=== PATIENT | male | born 1960 | race Hispanic/Latino ===

== ENCOUNTER 2017-01-25 15:38 | Inpatient (IN) | payer OTHER ==
[2017-01-25 17:10] LABS: Hematocrit 52.9 % (35.5-45.6); Hemoglobin 17.2 gm/dl (11.8-15.2); Mean Corpuscular HGB Conc 33 % (32-34); Mean Corpuscular Hemoglobin 30 pg (28-32); Mean Corpuscular Volume 93 fl (84-94); Platelet Count 234 K/mm3 (140-440); Red Blood Count 5.66 M/mm3 (3.65-5.03); Red Cell Distribution Width 14.9 % (13.2-15.2)
[2017-01-25 17:26] LABS: White Blood Count 23.6 K/mm3 (4.5-11.0)
[2017-01-25 17:29] LABS: Anion Gap 22 mmol/L; BUN/Creatinine Ratio 21; Blood Urea Nitrogen 15 mg/dL (9-20); Calcium 9.4 mg/dL (8.4-10.2); Carbon Dioxide 26 mmol/L (22-30); Chloride 93.5 mmol/L (98-107); Glucose 151 mg/dL (75-100); Potassium 4.6 mmol/L (3.6-5.0); Sodium 137 mmol/L (137-145)
--- NOTE | 2017-01-25 17:43 | Emergency Department Report ---
ED Seizure HPI - General Chief Complaint: Syncope Stated Complaint: SYNCOPE Time Seen by Provider: 01/25/17 17:20 Source: patient, family (daughter and boss), EMS Mode of arrival: Stretcher Limitations: No Limitations - History of Present Illness Initial Comments: 56 yo MALE WITH H/O ONE SEIZURE LAST MONTH ON WELLBUTRIN FOR SMOKING CESSATION HERE WITH C/O ANOTHER SEIZURE WHICH OCCURRED WHILE HE WAS AT WORK. PT HAD LUNCH AT 12:00 AND THEN AT 1500 HE HAD A GENERALIZED SIEZURE. PER EYE WITNESSES HIS EYES ROLLED BACK INTO HIS HEAD AND HE SHOOK ALL OVER. THERE WAS NO FECAL OR URINARY INCONTINENCE WITH THE SEIZURE BUT HE BIT THE LEFT SIDE OF HIS TONGUE. HE C/O OF MUSCLE PAIN ALLOVERPT HAS H/O 3 4 STENTS PALCED A MONTH AGO, HTN, TOBACCO ABUSE,SEIZURE AND ABOUT 7 SD STARTING WITH 2005.. Witnessed:: Yes Trauma: No (PAIN ALL OVER) Seizure History: other (ONE SEIZURE LAST MONTH) Place: work Possible Precipitating Event: medication (WELLBUTRIN) Associated Symptoms: other (PAIN ALL OVER) Treatments Prior to Arrival: none - Related Data Home Medications Medication Instructions Recorded Confirmed Last Taken Aspirin EC [Aspirin Enteric Coated 325 mg PO DAILY 06/10/16 06/10/16 06/10/16 TAB] AtorvaSTATin [Lipitor] 40 mg PO DAILY 06/10/16 06/10/16 06/10/16 Clopidogrel Bisulfate [Plavix] 75 mg PO DAILY 06/10/16 06/10/16 06/10/16 Lisinopril [Zestril TAB] 20 mg PO DAILY 06/10/16 06/10/16 06/09/16 Metoprolol [Lopressor TAB] 50 mg PO DAILY 06/10/16 06/10/16 06/09/16 Allergies Allergy/AdvReac Type Severity Reaction Status Date / Time Penicillins Allergy Hives Verified 06/10/16 07:22 ED Review of Systems ROS: Stated complaint: SYNCOPE Other details as noted in HPI Constitutional: denies: chills, fever Eyes: denies: eye pain, eye discharge, vision change ENT: denies: ear pain, throat pain Respiratory: denies: cough, shortness of breath, wheezing Cardiovascular: denies: chest pain, palpitations Endocrine: no symptoms reported Gastrointestinal: denies: abdominal pain, nausea, diarrhea Genitourinary: denies: urgency, dysuria Musculoskeletal: myalgia. denies: back pain, joint swelling, arthralgia Skin: denies: rash, lesions Neurological: denies: headache, weakness, paresthesias Psychiatric: denies: anxiety, depression Hematological/Lymphatic: denies: easy bleeding, easy bruising ED Past Medical Hx - Past Medical History Hx Hypertension: Yes Hx Heart Attack/AMI: Yes Hx Congestive Heart Failure: No Hx Diabetes: No Hx Arthritis: Yes Hx Seizures: Yes (x1 episode) Hx Asthma: No Hx COPD: No - Surgical History Hx Coronary Stent: Yes - Social History Smoking Status: Current Every Day Smoker Substance Use Type: Alcohol - Medications Home Medications: Home Medications Medication Instructions Recorded Confirmed Last Taken Type Aspirin EC [Aspirin Enteric Coated 325 mg PO DAILY 06/10/16 06/10/16 06/10/16 History TAB] AtorvaSTATin [Lipitor] 40 mg PO DAILY 06/10/16 06/10/16 06/10/16 History Clopidogrel Bisulfate [Plavix] 75 mg PO DAILY 06/10/16 06/10/16 06/10/16 History Lisinopril [Zestril TAB] 20 mg PO DAILY 06/10/16 06/10/16 06/09/16 History Metoprolol [Lopressor TAB] 50 mg PO DAILY 06/10/16 06/10/16 06/09/16 History ED Physical Exam - General Limitations: No Limitations General appearance: alert, in no apparent distress - Head Head exam: Present: atraumatic, normocephalic - Eye Eye exam: Present: normal appearance - ENT ENT exam: Present: mucous membranes moist, other (POOR DENTITION) - Neck Neck exam: Present: normal inspection, full ROM - Respiratory Respiratory exam: Present: normal lung sounds bilaterally. Absent: respiratory distress, wheezes, rales - Cardiovascular Cardiovascular Exam: Present: regular rate, normal rhythm, normal heart sounds. Absent: bradycardia, tachycardia, systolic murmur, diastolic murmur, rubs, gallop - GI/Abdominal GI/Abdominal exam: Present: soft, normal bowel sounds. Absent: distended, tenderness - Rectal Rectal exam: Present: deferred - Extremities Exam Extremities exam: Present: normal inspection, full ROM - Back Exam Back exam: Present: normal inspection, full ROM - Neurological Exam Neurological exam: Present: alert, oriented X3, CN II-XII intact. Absent: motor sensory deficit, reflexes normal - Psychiatric Psychiatric exam: Present: normal affect, normal mood - Skin Skin exam: Present: warm, dry, intact, normal color. Absent: rash ED Course Vital Signs 01/25/17 01/25/17 01/25/17 16:43 17:14 17:16 Temperature 98.1 F Pulse Rate 86 89 87 Respiratory 18 21 24 Rate Blood Pressure 142/89 142/88 140/89 Blood Pressure [Right] O2 Sat by Pulse 96 96 97 Oximetry 01/25/17 01/25/17 01/25/17 17:18 17:20 17:22 Temperature Pulse Rate 91 H 89 88 Respiratory 14 14 12 Rate Blood Pressure 140/89 140/89 140/89 Blood Pressure [Right] O2 Sat by Pulse 96 97 97 Oximetry 01/25/17 01/25/17 01/25/17 17:24 17:26 17:28 Temperature Pulse Rate 89 90 91 H Respiratory 19 15 15 Rate Blood Pressure 140/89 140/89 140/89 Blood Pressure [Right] O2 Sat by Pulse 97 97 98 Oximetry 01/25/17 01/25/17 01/25/17 17:30 17:32 17:34 Temperature Pulse Rate 94 H 91 H 94 H Respiratory 13 17 20 Rate Blood Pressure 140/89 150/92 150/92 Blood Pressure [Right] O2 Sat by Pulse 97 97 99 Oximetry 01/25/17 01/25/17 01/25/17 17:36 17:38 17:40 Temperature Pulse Rate 97 H 95 H 95 H Respiratory 10 L 14 12 Rate Blood Pressure 150/92 150/92 150/92 Blood Pressure [Right] O2 Sat by Pulse 99 98 98 Oximetry 01/25/17 01/25/17 01/25/17 17:42 17:44 17:46 Temperature Pulse Rate 96 H 92 H 93 H Respiratory 10 L 15 13 Rate Blood Pressure 150/92 150/92 130/75 Blood Pressure [Right] O2 Sat by Pulse 98 98 97 Oximetry 01/25/17 01/25/17 01/25/17 17:48 17:50 17:52 Temperature Pulse Rate 85 95 H 89 Respiratory 10 L 27 H 12 Rate Blood Pressure 130/75 130/75 130/75 Blood Pressure [Right] O2 Sat by Pulse 98 97 97 Oximetry 01/25/17 01/25/17 01/25/17 17:54 17:56 17:58 Temperature Pulse Rate 91 H 89 92 H Respiratory 19 19 13 Rate Blood Pressure 130/75 130/75 130/75 Blood Pressure [Right] O2 Sat by Pulse 96 97 97 Oximetry 01/25/17 01/25/17 01/25/17 18:00 18:02 18:04 Temperature Pulse Rate 89 90 88 Respiratory 21 21 21 Rate Blood Pressure 130/75 130/72 130/72 Blood Pressure [Right] O2 Sat by Pulse 97 94 95 Oximetry 01/25/17 01/25/17 01/25/17 18:06 18:08 18:10 Temperature Pulse Rate 87 87 86 Respiratory 21 18 19 Rate Blood Pressure 130/72 130/72 130/72 Blood Pressure [Right] O2 Sat by Pulse Oximetry 01/25/17 01/25/17 01/25/17 18:12 18:14 18:16 Temperature Pulse Rate 85 86 86 Respiratory 15 19 18 Rate Blood Pressure 130/72 130/72 135/78 Blood Pressure [Right] O2 Sat by Pulse Oximetry 01/25/17 01/25/17 01/25/17 18:20 19:18 19:20 Temperature Pulse Rate 86 93 H 88 Respiratory 11 L 18 16 Rate Blood Pressure 135/78 135/78 147/87 Blood Pressure [Right] O2 Sat by Pulse 93 Oximetry 01/25/17 01/25/17 01/25/17 19:22 19:24 19:26 Temperature Pulse Rate 88 88 85 Respiratory 17 14 14 Rate Blood Pressure 147/87 147/87 147/87 Blood Pressure [Right] O2 Sat by Pulse 95 95 96 Oximetry 01/25/17 01/25/17 01/25/17 19:28 19:30 19:32 Temperature Pulse Rate 85 88 88 Respiratory 15 14 22 Rate Blood Pressure 147/87 133/72 133/72 Blood Pressure [Right] O2 Sat by Pulse 95 93 94 Oximetry 01/25/17 01/25/17 01/25/17 19:34 19:36 19:38 Temperature Pulse Rate 85 90 89 Respiratory 18 13 24 Rate Blood Pressure 133/72 133/72 133/72 Blood Pressure [Right] O2 Sat by Pulse 95 96 95 Oximetry 01/25/17 01/25/17 01/25/17 19:40 19:42 19:44 Temperature Pulse Rate 89 96 H 99 H Respiratory 22 20 13 Rate Blood Pressure 133/72 133/72 133/72 Blood Pressure [Right] O2 Sat by Pulse 95 95 93 Oximetry 01/25/17 01/25/17 01/25/17 19:46 19:48 19:50 Temperature Pulse Rate 91 H 90 89 Respiratory 16 22 25 H Rate Blood Pressure 157/88 157/88 157/88 Blood Pressure [Right] O2 Sat by Pulse 95 95 94 Oximetry 01/25/17 19:53 Temperature 98.4 F Pulse Rate 88 Respiratory 11 L Rate Blood Pressure Blood Pressure 147/87 [Right] O2 Sat by Pulse 94 Oximetry ED Medical Decision Making - Lab Data Result diagrams: 01/25/17 20:49 01/25/17 16:55 - EKG Data -: EKG Interpreted by Me EKG shows normal: axis, intervals Rate: tachycardia - EKG Data When compared to previous EKG there are: changes noted (INFERIOR ST -CHANGES, LEFT ATRIAL ENLAREMENT) Critical care time in (mins) excluding proc time.: 60 Critical care attestation.: If time is entered above; I have spent that time in minutes in the direct care of this critically ill patient, excluding procedure time. MARIA DOLORES Critical Care Time: 60MIN ED Disposition Clinical Impression: NSTEMI (non-ST elevated myocardial infarction), Seizure CAD (coronary artery disease) Qualifiers: Coronary Disease-Associated Artery/Lesion type: unspecified vessel or lesion type [place] vs. transplanted heart: [place] heart Associated angina: without angina Qualified Code(s): I25.10 - Atherosclerotic heart disease of [place] coronary artery without angina pectoris Disposition: OP ADMIT IP TO THIS HOSP Is pt being admited?: Yes Condition: Serious Referrals: PRIMARY CARE, [Primary Care Provider] - 3-5 Days Time of Disposition: 21:54 (MARTHA REVIEWED WITH [facility] AND SHE WILL ADMIT THIS PT TO THE HOSPITAL)
[2017-01-25] MEDS ORDERED: NACL 0.9% 1000 ML 1,000 ML IV ONE ×2 (17:44→21:12)
[2017-01-25 17:58] LABS: Basophils % (Manual) 0 % (0.0-1.8); Blastocytes % (Manual) 0 %; Diff Status Complete; RBC Morphology Normal
[2017-01-25 19:12] LABS: Urine Drugs of Abuse Note Disclamer
[2017-01-25 19:22] LABS: Bilirubin,Urine NEG (Negative); Blood,Urine NEG (Negative); Ketones,Urine NEG (Negative); Leukocyte Esterase,Urine NEG (Negative); Mucus,Urine FEW /HPF; Nitrite,Urine NEG (Negative); Protein,Urine <15 mg/dL mg/dL (Negative); Urobilinogen,Urine < 2.0 mg/dL (<2.0); WBC,Urine < 1.0 /HPF (0.0-6.0)
[2017-01-25] MEDS ORDERED: ASPIRIN PO ONE (21:11)
[2017-01-25 21:35] LABS: Hematocrit 49.4 % (35.5-45.6); Hemoglobin 16.4 gm/dl (11.8-15.2); Mean Corpuscular HGB Conc 33 % (32-34); Mean Corpuscular Hemoglobin 31 pg (28-32); Mean Corpuscular Volume 92 fl (84-94); Platelet Count 214 K/mm3 (140-440); Red Blood Count 5.37 M/mm3 (3.65-5.03)
--- NOTE | 2017-01-25 21:43 | XRay Report ---
FINAL REPORT PROCEDURE: XR CHEST ROUTINE 2V TECHNIQUE: Two views of the chest are obtained HISTORY: Fever COMPARISON: No prior studies are available for comparison. FINDINGS: Lungs are hyperinflated possibly due to COPD. Large anterior osteophytes are seen in the mid thoracic spine. Heart is normal size. No pneumothorax, focal infiltrate, or pleural effusion is seen IMPRESSION: There may be changes of COPD but no evidence pneumonia is seen.
[2017-01-25 21:52] LABS: White Blood Count 21.5 K/mm3 (4.5-11.0)
[2017-01-25] MEDS ORDERED: KEPPRA 1,000 MG in NACL 0.9% 100 ML IV SCH (22:00)
[2017-01-25] MEDS ORDERED: KEPPRA 1,000 MG/NS 0.75% 100ML 1,000 MG/100 ML BAG IV SCH (22:00)
[2017-01-25 22:08] LABS: Creatine Kinase MB 11.3 ng/mL (0.0-4.0)
[2017-01-25 22:32] LABS: Blastocytes % (Manual) 0 %; Eosinophils % (Manual) 0 % (0.0-4.3)
[2017-01-25 22:34] LABS: Diff Status Complete; Giant Platelets Few
[2017-01-25] MEDS ORDERED: KEPPRA 1,000 MG/NS 0.75% 100ML 1,000 MG/100 ML BAG IV ONE (23:15)
[2017-01-25] MEDS ORDERED: ASPIRIN ONE (23:15)
[2017-01-25] MEDS ORDERED: NACL 0.9% 1000 ML 1,000 ML ONE (23:15)
[2017-01-25] MEDS ORDERED: NITRO-BID 2% TP ONE ×2 (23:41→23:47)
[2017-01-25] MEDS ORDERED: LOVENOX SUB-Q ONE (23:47)
[2017-01-25] MEDS: LOVENOX SUB-Q SCH (23:51)
[2017-01-26] MEDS ORDERED: ZOFRAN IV PRN (03:40)
[2017-01-26] MEDS ORDERED: TYLENOL PO PRN (03:40)
[2017-01-26] MEDS ORDERED: MORPHINE IV PRN (03:40)
[2017-01-26] MEDS ORDERED: PERCOCET 5/325 PO PRN (03:40)
[2017-01-26] MEDS ORDERED: MILK OF MAGNESIA PO PRN (03:40)
[2017-01-26] MEDS ORDERED: DULCOLAX PR PRN (03:40)
--- NOTE | 2017-01-26 03:49 | History and Physical Report ---
History of Present Illness Date of admission: 01/25/17 21:55 Chief complaint: seizure History of present illness: A 56-year-old male presents medical history of hypertension, hyperlipidemia, CAD status post multiple stents recently. History of recent [place]. Patient has a history of tobacco abuse. Was recently started on Wellbutrin to help him to cut back on cigarettes. He was at work when he was noticed to fall down and have a generalized tonic-clonic seizure. Patient is now postictal and confused. Denies chest pain. Denies any recollection of what happened. He has a known history of seizure disorder states her last seizure was about a month ago. However he presented in June 2016 to this hospital. That time he was brought in by his daughter for seizure, workup was consistent with non- STEMI, and he went on to have angiogram and angioplasty of his LAD. Past History Past Medical History: CAD, hypertension, hyperlipidemia, seizures Past Surgical History: Other (PCI) Social history: smoking Family history: hypertension Medications and Allergies Allergies Allergy/AdvReac Type Severity Reaction Status Date / Time Penicillins Allergy Hives Verified 06/10/16 07:22 Home Medications Medication Instructions Recorded Confirmed Last Taken Type Aspirin EC [Aspirin Enteric Coated 325 mg PO DAILY 06/10/16 01/26/17 06/10/16 History TAB] AtorvaSTATin [Lipitor] 40 mg PO DAILY 06/10/16 01/26/17 06/10/16 History Clopidogrel Bisulfate [Plavix] 75 mg PO DAILY 06/10/16 01/26/17 06/10/16 History Lisinopril [Zestril TAB] 20 mg PO DAILY 06/10/16 01/26/17 06/09/16 History Metoprolol [Lopressor TAB] 50 mg PO DAILY 06/10/16 01/26/17 06/09/16 History Active Meds: Active Medications Aspirin (Ecotrin) 325 mg PO DAILY [facility] Atorvastatin Calcium (Lipitor) 40 mg PO DAILY [facility] Clopidogrel Bisulfate (Plavix) 75 mg PO DAILY [facility] Enoxaparin Sodium (Lovenox) 80 mg 1 mg/kg (80 mg) SUB-Q Q12HR [facility] Last Admin: 01/25/17 23:51 Dose: 80 mg Levetiracetam (Keppra 1,000 Mg/Ns 0.75% 100ml) 1,000 mg in 100 mls @ 400 mls/ hr IV Q12H [facility] Last Admin: 01/25/17 23:25 Dose: 400 mls/hr Lisinopril (Zestril) 20 mg PO DAILY [facility] Metoprolol Tartrate (Lopressor) 50 mg PO DAILY [facility] Review of Systems ROS unobtainable: due to mental status Exam - Constitutional Vitals: Temp Pulse Resp BP Pulse Ox 98.6 F 81 18 141/86 95 01/26/17 01:39 01/26/17 01:39 01/26/17 01:39 01/26/17 01:39 01/26/17 01:39 General appearance: Present: no acute distress, well-nourished - EENT Eyes: Present: PERRL ENT: hearing intact, clear oral mucosa - Neck Neck: Present: supple, normal ROM - Respiratory Respiratory effort: normal Respiratory: bilateral: CTA - Cardiovascular Heart Sounds: Present: S1 & S2. Absent: rub, click - Extremities Extremities: pulses symmetrical, No edema Peripheral Pulses: within normal limits - Abdominal General gastrointestinal: Present: soft, non-tender, non-distended, normal bowel sounds Male genitourinary: Present: normal - Integumentary Integumentary: Present: clear, warm, dry - Musculoskeletal Musculoskeletal: gait normal, strength equal bilaterally - Psychiatric Psychiatric: cooperative - Neurologic Neurologic: moves all extremities, other (confused, somnolent) Results - Labs CBC & Chem 7: 01/25/17 20:49 01/25/17 16:55 Labs: Laboratory Last Values WBC 21.5 K/mm3 (4.5-11.0) H 01/25/17 20:49 RBC 5.37 M/mm3 (3.65-5.03) H 01/25/17 20:49 Hgb 16.4 gm/dl (11.8-15.2) H 01/25/17 20:49 Hct 49.4 % (35.5-45.6) H 01/25/17 20:49 MCV 92 fl (84-94) 01/25/17 20:49 MCH 31 pg (28-32) 01/25/17 20:49 MCHC 33 % (32-34) 01/25/17 20:49 RDW 15.0 % (13.2-15.2) 01/25/17 20:49 Plt Count 214 K/mm3 (140-440) 01/25/17 20:49 Add Manual Diff Complete 01/25/17 20:49 Total Counted 100 01/25/17 20:49 Seg Neuts % (Manual) 83.0 % (40.0-70.0) H 01/25/17 20:49 Band Neutrophils % 1.0 % 01/25/17 20:49 Lymphocytes % (Manual) 12.0 % (13.4-35.0) L 01/25/17 20:49 Reactive Lymphs % (Man) 0 % 01/25/17 20:49 Monocytes % (Manual) 3.0 % (0.0-7.3) 01/25/17 20:49 Eosinophils % (Manual) 0 % (0.0-4.3) 01/25/17 20:49 Basophils % (Manual) 1.0 % (0.0-1.8) 01/25/17 20:49 Metamyelocytes % 0 % 01/25/17 20:49 Myelocytes % 0 % 01/25/17 20:49 Promyelocytes % 0 % 01/25/17 20:49 Blast Cells % 0 % 01/25/17 20:49 Nucleated RBC % Not Reportable 01/25/17 20:49 Seg Neutrophils # Man 17.8 K/mm3 (1.8-7.7) H 01/25/17 20:49 Band Neutrophils # 0.2 K/mm3 01/25/17 20:49 Lymphocytes # (Manual) 2.6 K/mm3 (1.2-5.4) 01/25/17 20:49 Abs React Lymphs (Man) 0.0 K/mm3 01/25/17 20:49 Monocytes # (Manual) 0.6 K/mm3 (0.0-0.8) 01/25/17 20:49 Eosinophils # (Manual) 0.0 K/mm3 (0.0-0.4) 01/25/17 20:49 Basophils # (Manual) 0.2 K/mm3 (0.0-0.1) H 01/25/17 20:49 Metamyelocytes # 0.0 K/mm3 01/25/17 20:49 Myelocytes # 0.0 K/mm3 01/25/17 20:49 Promyelocytes # 0.0 K/mm3 01/25/17 20:49 Blast Cells # 0.0 K/mm3 01/25/17 20:49 WBC Morphology Not Reportable 01/25/17 20:49 Hypersegmented Neuts Not Reportable 01/25/17 20:49 Hyposegmented Neuts Not Reportable 01/25/17 20:49 Hypogranular Neuts Not Reportable 01/25/17 20:49 Smudge Cells Not Reportable 01/25/17 20:49 Toxic Granulation Not Reportable 01/25/17 20:49 Toxic Vacuolation Not Reportable 01/25/17 20:49 Dohle Bodies Not Reportable 01/25/17 20:49 Pelger-Huet Anomaly Not Reportable 01/25/17 20:49 Dante Rods Not Reportable 01/25/17 20:49 Platelet Estimate Appears normal 01/25/17 20:49 Clumped Platelets Not Reportable 01/25/17 20:49 Plt Clumps, EDTA Not Reportable 01/25/17 20:49 Large Platelets Not Reportable 01/25/17 20:49 Giant Platelets Few 01/25/17 20:49 Platelet Satelliting Not Reportable 01/25/17 20:49 Plt Morphology Comment Not Reportable 01/25/17 20:49 RBC Morphology Not Reportable 01/25/17 20:49 Dimorphic RBCs Not Reportable 01/25/17 20:49 Polychromasia Not Reportable 01/25/17 20:49 Hypochromasia Not Reportable 01/25/17 20:49 Poikilocytosis Not Reportable 01/25/17 20:49 Anisocytosis Not Reportable 01/25/17 20:49 Microcytosis Not Reportable 01/25/17 20:49 Macrocytosis Not Reportable 01/25/17 20:49 Spherocytes Not Reportable 01/25/17 20:49 Pappenheimer Bodies Not Reportable 01/25/17 20:49 Sickle Cells Not Reportable 01/25/17 20:49 Target Cells Not Reportable 01/25/17 20:49 Tear Drop Cells Not Reportable 01/25/17 20:49 Ovalocytes Not Reportable 01/25/17 20:49 Helmet Cells Not Reportable 01/25/17 20:49 [place] Bodies Not Reportable 01/25/17 20:49 [place] Rings Not Reportable 01/25/17 20:49 [place] Cells Not Reportable 01/25/17 20:49 Bite Cells Not Reportable 01/25/17 20:49 Crenated Cell Not Reportable 01/25/17 20:49 Elliptocytes Not Reportable 01/25/17 20:49 Acanthocytes (Spur) Not Reportable 01/25/17 20:49 Rouleaux Not Reportable 01/25/17 20:49 Hemoglobin C Crystals Not Reportable 01/25/17 20:49 Schistocytes Not Reportable 01/25/17 20:49 Malaria parasites Not Reportable 01/25/17 20:49 Arron Bodies Not Reportable 01/25/17 20:49 Hem Pathologist Commnt No 01/25/17 20:49 Sodium 137 mmol/L (137-145) 01/25/17 16:55 Potassium 4.6 mmol/L (3.6-5.0) 01/25/17 16:55 Chloride 93.5 mmol/L (98-107) L 01/25/17 16:55 Carbon Dioxide 26 mmol/L (22-30) 01/25/17 16:55 Anion Gap 22 mmol/L 01/25/17 16:55 BUN 15 mg/dL (9-20) 01/25/17 16:55 Creatinine 0.7 mg/dL (0.8-1.5) L 01/25/17 16:55 Estimated GFR > 60 ml/min 01/25/17 16:55 BUN/Creatinine Ratio 21 % 01/25/17 16:55 Glucose 151 mg/dL (75-100) H 01/25/17 16:55 Calcium 9.4 mg/dL (8.4-10.2) 01/25/17 16:55 Total Creatine Kinase 770 units/L (55-170) H 01/25/17 20:00 CK-MB (CK-2) 11.3 ng/mL (0.0-4.0) H 01/25/17 20:00 CK-MB (CK-2) Rel Index 1.4 (0-4) 01/25/17 20:00 Troponin T 0.106 ng/mL (0.00-0.029) H* D 01/25/17 22:52 Triglycerides 89 mg/dL (2-149) 01/25/17 20:00 Cholesterol 226 mg/dL (50-199) H 01/25/17 20:00 LDL Cholesterol Direct 156 mg/dL (50-130) H 01/25/17 20:00 HDL Cholesterol 53 mg/dL (40-59) 01/25/17 20:00 Cholesterol/HDL Ratio 4.26 % 01/25/17 20:00 Urine Color Yellow (Yellow) 01/25/17 18:57 Urine Turbidity Clear (Clear) 01/25/17 18:57 Urine pH 5.0 (5.0-7.0) 01/25/17 18:57 Ur Specific [place] 1.020 (1.003-1.030) 01/25/17 18:57 Urine Protein <15 mg/dl mg/dL (Negative) 01/25/17 18:57 Urine Glucose (UA) Neg mg/dL (Negative) 01/25/17 18:57 Urine Ketones Neg mg/dL (Negative) 01/25/17 18:57 Urine Blood Neg (Negative) 01/25/17 18:57 Urine Nitrite Neg (Negative) 01/25/17 18:57 Urine Bilirubin Neg (Negative) 01/25/17 18:57 Urine Urobilinogen < 2.0 mg/dL (<2.0) 01/25/17 18:57 Ur Leukocyte Esterase Neg (Negative) 01/25/17 18:57 Urine WBC (Auto) < 1.0 /HPF (0.0-6.0) 01/25/17 18:57 Urine RBC (Auto) 1.0 /HPF (0.0-6.0) 01/25/17 18:57 Urine Mucus Few /HPF 01/25/17 18:57 Urine Opiates Screen Presumptive negative 01/25/17 18:57 Urine Methadone Screen Presumptive negative 01/25/17 18:57 Ur Barbiturates Screen Presumptive negative 01/25/17 18:57 Ur Phencyclidine Scrn Presumptive negative 01/25/17 18:57 Ur Amphetamines Screen Presumptive negative 01/25/17 18:57 U Benzodiazepines Scrn Presumptive negative 01/25/17 18:57 Urine Cocaine Screen Presumptive negative 01/25/17 18:57 U Marijuana (THC) Screen Presumptive negative 01/25/17 18:57 Drugs of Abuse Note Disclamer 01/25/17 18:57 - Imaging and Cardiology Chest x-ray: image reviewed (no acute findings) Assessment and Plan Assessment and plan: 56-year-old male with past medical history of seizure disorder, CAD hypertension and hyperlipidemia. Patient was brought to the hospital after a witnessed seizure. Status epilepticus Continue keppra, EEG, CT head and MRI brain. Obtain neurology consult UDs negative Non-STEMI Acute rise in troponin noted, given history of recent [place] and recent stenting. We'll put him on Lovenox full dose if CT head is negative for bleeding -Cardiology consult with Dr. Granados who saw him during his last admission -continue Asa, plavix, metoprolol and statin -keep NPO until seen by cardiology Tobacco abuse -smoking cessation ordered -hold wellbutrin as it may lower seizure threshold HTN resume home meds HLD continue statin DVT ppx fully anticoagulated VTE prophylaxis?: Chemical
--- NOTE | 2017-01-26 08:35 | Cat Scan Report ---
FINAL REPORT EXAM: CT HEAD/BRAIN WO CON HISTORY: seizure TECHNIQUE: CT imaging acquired through the head without intravenous contrast. Transaxial reformations are provided. PRIORS: 06/10/2016 FINDINGS: The ventricles, cisterns and sulci are mildly proportionately enlarged, consistent with parenchymal volume loss. No intraparenchymal or extra-axial mass, hemorrhage, or mass effect. Lester and white-matter differentiation is reflective of mild sequela of microvascular angiopathy. Normal spherical shape of the globes. No significant abnormality involving the imaged portions of the paranasal sinuses and mastoid air cells. No skull or facial fracture visualized. IMPRESSION: No acute intracranial abnormality. Consider follow-up MRI. There are mild sequela of parenchymal atrophy and microvascular angiopathy.
--- NOTE | 2017-01-26 09:17 | Magnetic Resonance Report ---
MRI OF THE BRAIN WITHOUT CONTRAST: HISTORY: Seizure PROCEDURE: Multiplanar, multisequence MR imaging of the brain without IV contrast was performed. FINDINGS: Compared to the CT head dated 01/26/17. There is mild diffuse cortical volume loss and mild nonspecific chronic white matter changes. Chronic lacunar infarct in the left elias measures 5 mm. No large chronic infarct. No evidence for acute ischemia, hemorrhage, mass or extra-axial fluid collection. The midline structures are central. The basal cisterns are patent. Normal ventricular size. The orbital cavities and sella turcica demonstrate no abnormality. Moderate mucosal thickening is noted throughout all paranasal sinuses. The mastoid air cells are clear. IMPRESSION: Mild cortical volume loss and nonspecific chronic white matter changes. Chronic lacunar infarct in the left elias. No acute intracranial process.
[2017-01-26] MEDS ORDERED: LOVENOX SUB-Q SCH (10:00)
[2017-01-26] MEDS ORDERED: LOPRESSOR PO SCH (10:00)
[2017-01-26] MEDS ORDERED: ECOTRIN PO SCH (10:00)
[2017-01-26] MEDS ORDERED: KEPPRA PO SCH (10:00)
[2017-01-26] MEDS ORDERED: PLAVIX PO SCH (10:00)
[2017-01-26] MEDS ORDERED: ZESTRIL PO SCH (10:00)
[2017-01-26] MEDS ORDERED: KEPPRA 500 MG in NACL 0.9% 100 ML IV SCH (10:00)
--- NOTE | 2017-01-26 10:09 | Consultation ---
History of Present Illness Consult date: 01/26/17 Requesting physician: DANTE MCCARTHY Consult reason: elevated troponin History of present illness: The patient is a 56 YO male with a past medical history significant for HTN, HLP, and CAD s/p PCI (stents placed in 2005 and 2009 and STEMI with PCI of proximal LAD 06/2016), tobacco use. He is a [place] pt and has been seen by our practice on a prior admission. He presented with c/o seizure yesterday while at work. He was at work yesterday when he was noticed to fall down and have a generalized tonic-clonic seizure. Denies any recollection of what happened. Pt was recently started on Wellbutrin to help him to cut back on cigarettes and believes that the seizure could have been induced by Wellbutrin. Following arrival, first troponin was negative and second was found to be minimally elevated and thus cardiology has been consulted. On evaluation, pt denies any current complaints. He states that he has been feeling well up until the seizure yesterday. He denies any chest pain, SOB, palpitations, n/v, diaphoresis or dizziness. He reports compliance with his medications, including ASA, plavix, lopressor, lisinopril and lipitor. Past History Past Medical History: CAD, hypertension, hyperlipidemia, seizures Past Surgical History: Other (PCI) Social history: smoking Family history: hypertension Medications and Allergies Allergies Allergy/AdvReac Type Severity Reaction Status Date / Time Penicillins Allergy Hives Verified 06/10/16 07:22 Home Medications Medication Instructions Recorded Confirmed Last Taken Type Aspirin EC [Aspirin Enteric Coated 325 mg PO DAILY 06/10/16 01/26/17 06/10/16 History TAB] AtorvaSTATin [Lipitor] 40 mg PO DAILY 06/10/16 01/26/17 06/10/16 History Clopidogrel Bisulfate [Plavix] 75 mg PO DAILY 06/10/16 01/26/17 06/10/16 History Lisinopril [Zestril TAB] 20 mg PO DAILY 06/10/16 01/26/17 06/09/16 History Metoprolol [Lopressor TAB] 50 mg PO DAILY 06/10/16 01/26/17 06/09/16 History Active Meds: Active Medications Acetaminophen (Tylenol) 650 mg PO Q4H PRN PRN Reason: Pain MILD(1-3)/Fever >100.5/SAAB Aspirin (Ecotrin) 325 mg PO DAILY [facility] Atorvastatin Calcium (Lipitor) 40 mg PO DAILY [facility] Bisacodyl (Dulcolax) 10 mg [place] QDAY PRN PRN Reason: Constipation unrelieved by [facility] Clopidogrel Bisulfate (Plavix) 75 mg PO DAILY [facility] Enoxaparin Sodium (Lovenox) 80 mg 1 mg/kg (80 mg) SUB-Q Q12HR [facility] Last Admin: 01/25/17 23:51 Dose: 80 mg Levetiracetam (Keppra) 500 mg PO BID [facility] Lisinopril (Zestril) 20 mg PO DAILY [facility] Magnesium Hydroxide (Milk Of Magnesia) 30 ml PO Q4H PRN PRN Reason: Constipation Metoprolol Tartrate (Lopressor) 50 mg PO DAILY [facility] Morphine Sulfate (Morphine) 2 mg IV Q4H PRN PRN Reason: Pain, Moderate (4-6) Ondansetron HCl (Zofran) 4 mg IV Q8H PRN PRN Reason: N/V unrelieved by Reglan Oxycodone/Acetaminophen (Percocet 5/325) 1 tab PO Q6H PRN PRN Reason: Pain, Moderate (4-6) Review of Systems Constitutional: no weight loss, no weight gain, no fever, no chills, no sweats Ears, nose, mouth and throat: no ear pain, no nose pain, no sinus pressure, no sinus pain Cardiovascular: no chest pain, no orthopnea, no palpitations, no rapid/ irregular heart beat, no edema, no lightheadedness, no shortness of breath, no dyspnea on exertion, no leg edema, no decreased exercise tolerance Respiratory: no cough, no congestion, no wheezing, no pain on inspiration Gastrointestinal: no abdominal pain, no nausea, no vomiting, no diarrhea, no constipation, no change in bowel habits Genitourinary Male: no dysuria, no hematuria, no flank pain, no discharge, no urinary frequency, no urinary hesitancy Musculoskeletal: no neck stiffness, no neck pain, no shooting arm pain, no arm numbness/tingling, no low back pain, no shooting leg pain, no leg numbness/ tingling, no redness of joints Integumentary: no rash, no pruritis, no redness, no sores, no wounds Neurological: seizures, no head injury, no paralysis, no weakness, no parathesias, no numbness, no tingling Psychiatric: no anxiety Endocrine: no cold intolerance, no heat intolerance Hematologic/Lymphatic: no easy bruising, no easy bleeding, no lymphadenopathy Allergic/Immunologic: no urticaria, no wheezing, no persistent infections Physical Examination Vital Signs Temp Pulse Resp BP Pulse Ox 98.1 F 86 18 142/89 96 01/25/17 16:43 01/25/17 16:43 01/25/17 16:43 01/25/17 16:43 01/25/17 16:43 General appearance: no acute distress HEENT: Positive: PERRL, Normocephaly, Mucus Membranes Moist Neck: Positive: neck supple, trachea midline Cardiac: Positive: Reg Rate and Rhythm, S1/S2 Lungs: Positive: Normal Exam, clear to auscultation, Normal Breath Sounds Neuro: Positive: Grossly Intact, Cranial Nerve 2-12 Intact Abdomen: Positive: Unremarkable, Soft, Active Bowel Sounds. Negative: Tender Skin: Positive: Clear. Negative: Rash, Wound Musculoskeletal: No Fluid Collection, No Pain, Normal Range of Motion Extremities: Absent: edema Results 01/25/17 20:49 01/25/17 16:55 Cardiac Enzymes 01/25/17 01/25/17 Range/Units 16:55 20:00 CK-MB (CK-2) 5.0 H 11.3 H (0.0-4.0) ng/mL Lipids 01/25/17 Range/Units 20:00 Triglycerides 89 (2-149) mg/dL Cholesterol 226 H (50-199) mg/dL HDL Cholesterol 53 (40-59) mg/dL Cholesterol/HDL Ratio 4.26 % CBC 01/25/17 01/25/17 Range/Units 16:55 20:49 WBC 23.6 H 21.5 H (4.5-11.0) K/mm3 RBC 5.66 H 5.37 H (3.65-5.03) M/mm3 Hgb 17.2 H 16.4 H (11.8-15.2) gm/dl Hct 52.9 H 49.4 H (35.5-45.6) % Plt Count 234 214 (140-440) K/mm3 Comprehensive Metabolic Panel 01/25/17 Range/Units 16:55 Sodium 137 (137-145) mmol/L Potassium 4.6 (3.6-5.0) mmol/L Chloride 93.5 L (98-107) mmol/L Carbon Dioxide 26 (22-30) mmol/L BUN 15 (9-20) mg/dL Creatinine 0.7 L (0.8-1.5) mg/dL Glucose 151 H (75-100) mg/dL Calcium 9.4 (8.4-10.2) mg/dL - Imaging and Cardiology Echo: report reviewed (06/2016: EF 55-60%, trace MR) Cardiac cath: report reviewed (STEMI with PCI of proximal LAD 06/2016) EKG: report reviewed, image reviewed EKG interpretations - Telemetry EKG Rhythm: Sinus Rhythm - EKG Sinus rhythms and dysrhythmias: sinus rhythm Myocardial infarction: septal MA (old age or ind, anterior MA (old age or i Assessment and Plan Assessment: Seizure - head CT and brain MRI with NAF; neurology consultation pending. Minimally elevated troponin x 1 set - pt denies chest pain; ECG with NAF CAD, s/p PCI of proximal LAD 06/10/2016 HTN HLP Tobacco use - cessation encouraged Plan: Minimally elevated troponin could be secondary to seizure. Currently stable cardiac status. No indication for repeat echo or ischemic evaluation at this time. Cont Plavix, ASA 81, lipitor, lopressor, and lisinopril. Assessment and plan reviewed with pt at bedside. The patient has been seen in conjunction with Dr. Mclaughlin who agrees with the assessment and plan of care.
[2017-01-26] MEDS: LOVENOX SUB-Q SCH (10:56)
[2017-01-26] MEDS ORDERED: BABY ASPIRIN PO SCH (11:30)
--- NOTE | 2017-01-26 12:28 | Progress Note ---
Assessment and Plan Assessment and plan: Patient is a 56-year-old man with a history of hypertension, dyslipidemia and tobacco dependency who was started on Wellbutrin about a month ago from [place]. He was titrating the dose as well as a seizure work. Initial troponin was negative and the second set positive for cardiology was consulted and he was admitted to the hospital. CT of the head read as nothing acute. -Status epilepticus control with IV Keppra: Await neurology's assessment, I believe the seizure was induced by Wellbutrin, I believe stopping the Wellbutrin and he will not probably need antiepileptic neurology but we'll defer to neurologist -Elevated troponin, per Cardiology: "Seizure - head CT and brain MRI with NAF; neurology consultation pending. Minimally elevated troponin x 1 set - pt denies chest pain; ECG with NAF CAD, s/p PCI of proximal LAD 06/10/2016 HTN HLP Tobacco use - cessation encouraged Plan: Minimally elevated troponin could be secondary to seizure. Currently stable cardiac status. No indication for repeat echo or ischemic evaluation at this time. Cont Plavix, ASA 81, lipitor, lopressor, and lisinopril. Assessment and plan reviewed with pt at bedside. The patient has been seen in conjunction with Dr. Mclaughlin who agrees with the assessment and plan of care. " -Leukocytosis with Sirs due to seizures -Hypertension -Dyslipidemia continue present medicines History Interval history: Patient was seen and examined. Follow-up on current diagnosis/seizures which resolved. Overnight uneventful. Patient denies any chest pain, shortness breath, nausea/vomiting or severe headaches. Imaging, nursing note, chart, labs and old chart reviewed. Discussed with patient. Patient started on Wellbutrin less than a month ago. He was titrating the dose up. Wellbutrin is known to lower seizure threshold. Patient denies ever having seizures. Hospitalist Physical - Physical exam Narrative exam: GEN: WDWN, NAD, AWAKE, ALERT, ORIENTATED 3 HEENT: NCAT, EOMI, PERRL, OP Clear, really poor dental hygiene with gingivitis and decayed teeth NECK: supple, no adenopathy, no thyromegaly, no JVD CVS/HEART: RRR, NORMAL S1S2, NO JVD, pulses present bilaterally CHEST/LUNGS: CTA B, Symmetrical chest expansion, good air entry bilaterally GI/Abdomen: soft, NTND, good bowel sounds, no guarding or rebound /Bladder: no suprapubic tenderness, no CVA or paraspinal tenderness EXT/Skin: no c/c/e, no obvious rash MSK: FROM x 4 Neuro: CN 2-12 grossly intact, no new focal deficits Psych: calm - Constitutional Vitals: Temp Pulse Resp BP Pulse Ox 98.4 F 83 18 144/84 96 01/26/17 04:57 01/26/17 10:57 01/26/17 04:57 01/26/17 10:57 01/26/17 04:57 General appearance: Present: no acute distress Results - Labs CBC & Chem 7: 01/25/17 20:49 01/25/17 16:55 Labs: Laboratory Last Values WBC 21.5 K/mm3 (4.5-11.0) H 01/25/17 20:49 RBC 5.37 M/mm3 (3.65-5.03) H 01/25/17 20:49 Hgb 16.4 gm/dl (11.8-15.2) H 01/25/17 20:49 Hct 49.4 % (35.5-45.6) H 01/25/17 20:49 MCV 92 fl (84-94) 01/25/17 20:49 MCH 31 pg (28-32) 01/25/17 20:49 MCHC 33 % (32-34) 01/25/17 20:49 RDW 15.0 % (13.2-15.2) 01/25/17 20:49 Plt Count 214 K/mm3 (140-440) 01/25/17 20:49 Add Manual Diff Complete 01/25/17 20:49 Total Counted 100 01/25/17 20:49 Seg Neuts % (Manual) 83.0 % (40.0-70.0) H 01/25/17 20:49 Band Neutrophils % 1.0 % 01/25/17 20:49 Lymphocytes % (Manual) 12.0 % (13.4-35.0) L 01/25/17 20:49 Reactive Lymphs % (Man) 0 % 01/25/17 20:49 Monocytes % (Manual) 3.0 % (0.0-7.3) 01/25/17 20:49 Eosinophils % (Manual) 0 % (0.0-4.3) 01/25/17 20:49 Basophils % (Manual) 1.0 % (0.0-1.8) 01/25/17 20:49 Metamyelocytes % 0 % 01/25/17 20:49 Myelocytes % 0 % 01/25/17 20:49 Promyelocytes % 0 % 01/25/17 20:49 Blast Cells % 0 % 01/25/17 20:49 Nucleated RBC % Not Reportable 01/25/17 20:49 Seg Neutrophils # Man 17.8 K/mm3 (1.8-7.7) H 01/25/17 20:49 Band Neutrophils # 0.2 K/mm3 01/25/17 20:49 Lymphocytes # (Manual) 2.6 K/mm3 (1.2-5.4) 01/25/17 20:49 Abs React Lymphs (Man) 0.0 K/mm3 01/25/17 20:49 Monocytes # (Manual) 0.6 K/mm3 (0.0-0.8) 01/25/17 20:49 Eosinophils # (Manual) 0.0 K/mm3 (0.0-0.4) 01/25/17 20:49 Basophils # (Manual) 0.2 K/mm3 (0.0-0.1) H 01/25/17 20:49 Metamyelocytes # 0.0 K/mm3 01/25/17 20:49 Myelocytes # 0.0 K/mm3 01/25/17 20:49 Promyelocytes # 0.0 K/mm3 01/25/17 20:49 Blast Cells # 0.0 K/mm3 01/25/17 20:49 WBC Morphology Not Reportable 01/25/17 20:49 Hypersegmented Neuts Not Reportable 01/25/17 20:49 Hyposegmented Neuts Not Reportable 01/25/17 20:49 Hypogranular Neuts Not Reportable 01/25/17 20:49 Smudge Cells Not Reportable 01/25/17 20:49 Toxic Granulation Not Reportable 01/25/17 20:49 Toxic Vacuolation Not Reportable 01/25/17 20:49 Dohle Bodies Not Reportable 01/25/17 20:49 Pelger-Huet Anomaly Not Reportable 01/25/17 20:49 Dante Rods Not Reportable 01/25/17 20:49 Platelet Estimate Appears normal 01/25/17 20:49 Clumped Platelets Not Reportable 01/25/17 20:49 Plt Clumps, EDTA Not Reportable 01/25/17 20:49 Large Platelets Not Reportable 01/25/17 20:49 Giant Platelets Few 01/25/17 20:49 Platelet Satelliting Not Reportable 01/25/17 20:49 Plt Morphology Comment Not Reportable 01/25/17 20:49 RBC Morphology Not Reportable 01/25/17 20:49 Dimorphic RBCs Not Reportable 01/25/17 20:49 Polychromasia Not Reportable 01/25/17 20:49 Hypochromasia Not Reportable 01/25/17 20:49 Poikilocytosis Not Reportable 01/25/17 20:49 Anisocytosis Not Reportable 01/25/17 20:49 Microcytosis Not Reportable 01/25/17 20:49 Macrocytosis Not Reportable 01/25/17 20:49 Spherocytes Not Reportable 01/25/17 20:49 Pappenheimer Bodies Not Reportable 01/25/17 20:49 Sickle Cells Not Reportable 01/25/17 20:49 Target Cells Not Reportable 01/25/17 20:49 Tear Drop Cells Not Reportable 01/25/17 20:49 Ovalocytes Not Reportable 01/25/17 20:49 Helmet Cells Not Reportable 01/25/17 20:49 [place] Bodies Not Reportable 01/25/17 20:49 [place] Rings Not Reportable 01/25/17 20:49 Angelita Cells Not Reportable 01/25/17 20:49 Bite Cells Not Reportable 01/25/17 20:49 Crenated Cell Not Reportable 01/25/17 20:49 Elliptocytes Not Reportable 01/25/17 20:49 Acanthocytes (Spur) Not Reportable 01/25/17 20:49 Rouleaux Not Reportable 01/25/17 20:49 Hemoglobin C Crystals Not Reportable 01/25/17 20:49 Schistocytes Not Reportable 01/25/17 20:49 Malaria parasites Not Reportable 01/25/17 20:49 Arron Bodies Not Reportable 01/25/17 20:49 Hem Pathologist Commnt No 01/25/17 20:49 Sodium 137 mmol/L (137-145) 01/25/17 16:55 Potassium 4.6 mmol/L (3.6-5.0) 01/25/17 16:55 Chloride 93.5 mmol/L (98-107) L 01/25/17 16:55 Carbon Dioxide 26 mmol/L (22-30) 01/25/17 16:55 Anion Gap 22 mmol/L 01/25/17 16:55 BUN 15 mg/dL (9-20) 01/25/17 16:55 Creatinine 0.7 mg/dL (0.8-1.5) L 01/25/17 16:55 Estimated GFR > 60 ml/min 01/25/17 16:55 BUN/Creatinine Ratio 21 % 01/25/17 16:55 Glucose 151 mg/dL (75-100) H 01/25/17 16:55 Calcium 9.4 mg/dL (8.4-10.2) 01/25/17 16:55 Total Creatine Kinase 770 units/L (55-170) H 01/25/17 20:00 CK-MB (CK-2) 11.3 ng/mL (0.0-4.0) H 01/25/17 20:00 CK-MB (CK-2) Rel Index 1.4 (0-4) 01/25/17 20:00 Troponin T 0.375 ng/mL (0.00-0.029) H* D 01/26/17 09:48 Triglycerides 89 mg/dL (2-149) 01/25/17 20:00 Cholesterol 226 mg/dL (50-199) H 01/25/17 20:00 LDL Cholesterol Direct 156 mg/dL (50-130) H 01/25/17 20:00 HDL Cholesterol 53 mg/dL (40-59) 01/25/17 20:00 Cholesterol/HDL Ratio 4.26 % 01/25/17 20:00 Urine Color Yellow (Yellow) 01/25/17 18:57 Urine Turbidity Clear (Clear) 01/25/17 18:57 Urine pH 5.0 (5.0-7.0) 01/25/17 18:57 Ur Specific [place] 1.020 (1.003-1.030) 01/25/17 18:57 Urine Protein <15 mg/dl mg/dL (Negative) 01/25/17 18:57 Urine Glucose (UA) Neg mg/dL (Negative) 01/25/17 18:57 Urine Ketones Neg mg/dL (Negative) 01/25/17 18:57 Urine Blood Neg (Negative) 01/25/17 18:57 Urine Nitrite Neg (Negative) 01/25/17 18:57 Urine Bilirubin Neg (Negative) 01/25/17 18:57 Urine Urobilinogen < 2.0 mg/dL (<2.0) 01/25/17 18:57 Ur Leukocyte Esterase Neg (Negative) 01/25/17 18:57 Urine WBC (Auto) < 1.0 /HPF (0.0-6.0) 01/25/17 18:57 Urine RBC (Auto) 1.0 /HPF (0.0-6.0) 01/25/17 18:57 Urine Mucus Few /HPF 01/25/17 18:57 Urine Opiates Screen Presumptive negative 01/25/17 18:57 Urine Methadone Screen Presumptive negative 01/25/17 18:57 Ur Barbiturates Screen Presumptive negative 01/25/17 18:57 Ur Phencyclidine Scrn Presumptive negative 01/25/17 18:57 Ur Amphetamines Screen Presumptive negative 01/25/17 18:57 U Benzodiazepines Scrn Presumptive negative 01/25/17 18:57 Urine Cocaine Screen Presumptive negative 01/25/17 18:57 U Marijuana (THC) Screen Presumptive negative 01/25/17 18:57 Drugs of Abuse Note Disclamer 01/25/17 18:57
--- NOTE | 2017-01-26 16:02 | Consultation ---
History of Present Illness Consult date: 01/26/17 History of present illness: patient seen for seizures and it is OK to be discharged and go avtar on Keppra 750 mg PER DAY AT hs i WILL FOLLOW UP AT OFFICE NO MORE WELLBUTRIN THIS MAY HAVE TRIGGERED SEIZURE FROM THE OLD LACUXAR LESION Past History Past Medical History: CAD, hypertension, hyperlipidemia, seizures Past Surgical History: Other (PCI) Social history: smoking Family history: hypertension Medications and Allergies Allergies Allergy/AdvReac Type Severity Reaction Status Date / Time Penicillins Allergy Hives Verified 06/10/16 07:22 Home Medications Medication Instructions Recorded Confirmed Last Taken Type Aspirin EC [Aspirin Enteric Coated 325 mg PO DAILY 06/10/16 01/26/17 06/10/16 History TAB] AtorvaSTATin [Lipitor] 40 mg PO DAILY 06/10/16 01/26/17 06/10/16 History Clopidogrel Bisulfate [Plavix] 75 mg PO DAILY 06/10/16 01/26/17 06/10/16 History Lisinopril [Zestril TAB] 20 mg PO DAILY 06/10/16 01/26/17 06/09/16 History Metoprolol [Lopressor TAB] 50 mg PO DAILY 06/10/16 01/26/17 06/09/16 History Active Meds: Active Medications Acetaminophen (Tylenol) 650 mg PO Q4H PRN PRN Reason: Pain MILD(1-3)/Fever >100.5/SAAB Aspirin (Baby Aspirin) 81 mg PO QDAY [facility] Last Admin: 01/26/17 11:53 Dose: 81 mg Atorvastatin Calcium (Lipitor) 40 mg PO DAILY [facility] Last Admin: 01/26/17 10:57 Dose: 40 mg Bisacodyl (Dulcolax) 10 mg [place] QDAY PRN PRN Reason: Constipation unrelieved by MOM Clopidogrel Bisulfate (Plavix) 75 mg PO DAILY [facility] Last Admin: 01/26/17 10:56 Dose: 75 mg Enoxaparin Sodium (Lovenox) 80 mg 1 mg/kg (80 mg) SUB-Q Q12HR [facility] Last Admin: 01/26/17 10:56 Dose: 80 mg Levetiracetam (Keppra) 500 mg PO BID [facility] Last Admin: 01/26/17 10:57 Dose: 500 mg Lisinopril (Zestril) 20 mg PO DAILY [facility] Last Admin: 01/26/17 10:57 Dose: 20 mg Magnesium Hydroxide (Milk Of Magnesia) 30 ml PO Q4H PRN PRN Reason: Constipation Metoprolol Tartrate (Lopressor) 50 mg PO DAILY [facility] Last Admin: 01/26/17 10:57 Dose: 50 mg Morphine Sulfate (Morphine) 2 mg IV Q4H PRN PRN Reason: Pain, Moderate (4-6) Ondansetron HCl (Zofran) 4 mg IV Q8H PRN PRN Reason: N/V unrelieved by Reglan Oxycodone/Acetaminophen (Percocet 5/325) 1 tab PO Q6H PRN PRN Reason: Pain, Moderate (4-6) Physical Examination - Vital Signs Vital Signs: Vital Signs Temp Pulse Resp BP Pulse Ox 98.1 F 86 18 142/89 96 01/25/17 16:43 01/25/17 16:43 01/25/17 16:43 01/25/17 16:43 01/25/17 16:43 Results - Laboratory Findings CBC and BMP: 01/25/17 20:49 01/25/17 16:55 Abnormal Lab Findings: Abnormal Labs 01/25/17 01/25/17 01/25/17 16:55 16:55 16:55 WBC 23.6 H RBC 5.66 H Hgb 17.2 H Hct 52.9 H Seg Neuts % (Manual) 84.0 H Lymphocytes % (Manual) 10.0 L Seg Neutrophils # Man 19.8 H Eosinophils # (Manual) 0.5 H Basophils # (Manual) Chloride 93.5 L Creatinine 0.7 L Glucose 151 H Total Creatine Kinase 191 H CK-MB (CK-2) 5.0 H Troponin T Cholesterol LDL Cholesterol Direct 01/25/17 01/25/17 01/25/17 20:00 20:00 20:49 WBC 21.5 H RBC 5.37 H Hgb 16.4 H Hct 49.4 H Seg Neuts % (Manual) 83.0 H Lymphocytes % (Manual) 12.0 L Seg Neutrophils # Man 17.8 H Eosinophils # (Manual) Basophils # (Manual) 0.2 H Chloride Creatinine Glucose Total Creatine Kinase 770 H CK-MB (CK-2) 11.3 H Troponin T 0.038 H D Cholesterol 226 H LDL Cholesterol Direct 156 H 01/25/17 01/26/17 22:52 09:48 WBC RBC Hgb Hct Seg Neuts % (Manual) Lymphocytes % (Manual) Seg Neutrophils # Man Eosinophils # (Manual) Basophils # (Manual) Chloride Creatinine Glucose Total Creatine Kinase CK-MB (CK-2) Troponin T 0.106 H* D 0.375 H* D Cholesterol LDL Cholesterol Direct
[2017-01-26 16:39] VITALS: BP 127/88
--- NOTE | 2017-01-27 09:25 | Discharge Summary ---
Providers - Providers Date of Admission: 01/25/17 21:55 Attending physician: ESTEVAN DUVALL 01/26/17 Consult to Cardiac Rehabilitation [CONS] Routine Reason For Exam: Phase 1 01/26/17 03:39 Consult to Physician [CONS] Routine Consulting Provider: AYESHA DICK Reason For Exam: nstemi Place consult to:: [facility] Notified:: y Comment:: added to list Consult to Physician [CONS] Routine Consulting Provider: BETINA BOSTON Reason For Exam: seizure Place consult to:: neuro Notified:: office Phone number called:: [phone] Was contact made?: Yes Primary care physician: [employer] Hospitalization Condition: Serious Hospital course: Patient is a 56-year-old man with a history of hypertension, dyslipidemia and tobacco dependency who was started on Wellbutrin about a month ago from [place]. He was titrating the dose as well as a seizure work. Initial troponin was negative and the second set positive for cardiology was consulted and he was admitted to the hospital. CT of the head read as nothing acute. -Status epilepticus control with IV Keppra: Await neurology's assessment, I believe the seizure was induced by Wellbutrin, I believe stopping the Wellbutrin and he will not probably need antiepileptic neurology but we'll defer to neurologist -Elevated troponin, per Cardiology: "Seizure - head CT and brain MRI with NAF; neurology consultation pending. Minimally elevated troponin x 1 set - pt denies chest pain; ECG with NAF CAD, s/p PCI of proximal LAD 06/10/2016 HTN HLP Tobacco use - cessation encouraged Plan: Minimally elevated troponin could be secondary to seizure. Currently stable cardiac status. No indication for repeat echo or ischemic evaluation at this time. Cont Plavix, ASA 81, lipitor, lopressor, and lisinopril. Assessment and plan reviewed with pt at bedside. The patient has been seen in conjunction with Dr. Mclaughlin who agrees with the assessment and plan of care. " -Leukocytosis with Sirs due to seizures -Hypertension -Dyslipidemia continue present medicines Brain MRI reported as mild cortical volume loss and nonspecific chronic white matter changes, Chronic lacunar infarct in the left elias. No acute intracranial process. per Neurologist, Dr. Boston: Consult date: 01/26/17 "History of present illness: patient seen for seizures and it is OK to be discharged and go avtar on Keppra 750 mg PER DAY AT i WILL FOLLOW UP AT OFFICE NO MORE WELLBUTRIN THIS MAY HAVE TRIGGERED SEIZURE FROM THE OLD L[place]UXAR LESION" I get a call from RN stating that I forgot to put the discharge orders for Mr. Wiggins, I told RN that patient's work up in not completed. EEG is still pending and I did not tell patient he would be discharged today. Also, Dr. Boston did not notify me of his plans. I still don't know if antiepileptic medication is the best treatment for Mr. Wiggins if we think the Wellbutrin was the triggering factor. I also told Mr. Wiggins that he can't drive until cleared by Neurologist and being on antiepileptic will change his life. I wanted to call an [place] neurologist once EEG was completed. "01/26/17 18:34 - Nurse Note by DAVID GREENE Num: [id number] : 1960 Patient Age: 56 Mr. Wiggins has left AMA. Signed form is on chart. Daughter came to pick him up and he ambulated to car. He stated "The Doctor told me I could leave". I paged MD Duvall who advised that he did not tell Mr. Wiggins that he could leave. I checked MD Phillips's notes and he had written that Mr. Wiggins is OK to discharge from his consult. Mr. Wiggins is upset and has left the floor. He stated that the "Doctor can call in his Keppra prescription to [facility]. The phone number is [phone]." Disposition: [id number] LEFT AGAINST MED ADVICE Core Measure Documentation - Palliative Care Palliative Care/ Comfort Measures: Not Applicable - Core Measures Any of the following diagnoses?: none - VTE Discharge Requirements Deep Vein Thrombosis/Pulmonary Embolism Present on Admission: No Has pt received <5 days of overlap therapy or INR<2.0: No Anticoagulant overlap therapy prescribed at discharge: No Contraindication No Overlap Therapy order at DC: Not Indicated Exam - Constitutional Vitals: Temp Pulse Resp BP Pulse Ox 98.8 F 73 18 127/88 95 01/26/17 15:54 01/26/17 15:54 01/26/17 15:54 01/26/17 15:54 01/26/17 15:54 Plan Activity: no driving until cleared by PCP (until cleared by Neurologist) Follow up with: PRIMARY CARE, [Primary Care Provider] - 3-5 Days Forms: AMA Form
== END 2017-01-26 17:34 | disposition left against medical advice (07) | DRG 101 ==
LOC: ED 15:38 → 4A 21:55
PROVIDERS: ADMIT Internal Medicine; ATTEND Internal Medicine
DX: G40.901 Epilepsy, unspecified, not intractable, with status epilepticus (principal); I25.10 Atherosclerotic heart disease of native coronary artery without angina pectoris; R07.9 Chest pain, unspecified; Z88.0 Allergy status to penicillin; I10 Essential (primary) hypertension; E78.5 Hyperlipidemia, unspecified; Z79.82 Long term (current) use of aspirin; I25.2 Old myocardial infarction; F17.200 Nicotine dependence, unspecified, uncomplicated; Z82.49 Family history of ischemic heart disease and other diseases of the circulatory system
CPT/HCPCS: 36415; 70450; 70551; 71020; 80048; 80061; 80307; 81001; 82550; 82553; 84484; 85007; 85025; 93005; 93010; 95819; 96361; 96365; 99291; A9270-GY; J1650; J1953; J7030